=== PATIENT | male | born 1935 | race Caucasian/White ===

== ENCOUNTER 2016-06-09 09:07 | Inpatient (IN) | payer OTHER, BC ==
--- NOTE | ~2016-06-09 | DS ---
Discharge Summary [facility] [address] [place]. [address] NAME: JANNETH COTTER : 37 STATUS : DIS IN PAT#: [id number] AGE: 81 ADM/REG DATE : 06/09/16 MR#: [id number] REPORT SERV DATE: 06/11/16 DICTATED BY: MARYLIN OVALLE DATE: 06/10/16 REPORT STATUS : Draft TRANSCRIBED BY: MODL DATE: 06/10/16 ADMISSION DATE: 06/09/2016 DISCHARGE DATE: 06/10/2016 DISCHARGE DIAGNOSES: 1. Right foot cellulitis. 2. Myelodysplastic syndrome. 3. Gout status post tophi removal. 4. Chronic kidney disease. 5. History of mitral regurgitation. HISTORY OF PRESENT ILLNESS: This is an 81-year-old male patient, who does have multiple medical problems including MDS, had a recent tophi removal with panama hat blocker. Then developed redness and pain, and he had to come back to the hospital. Please see dictated H and P. HOSPITAL COURSE: He was admitted to hospital with cellulitis, had a CT of the foot. He states it did not show any evidence of a bone infection. It showed a cellulitis. In the emergency room, the patient was cultured; however, the culture did not grow anything. He is improving significantly with the vancomycin within 24 hours. The patient is requesting and insisting to go to home and getting the oral therapy due to the home situation with mentally impaired being alone. Also, we are consulting Abimbola Springer, his panama hat blocker, to take a look at his feet for wound care and also suture removal, and then we arranged to Zyvox therapy for six more days of the treatment. Concern for the staph infection since the procedure was done at the outpatient office. Also he had a significant improvement with vancomycin. We arranged Zyvox treatment and the patient is safely discharged home, and need to follow up with other physicians. The Zyvox was chosen due to his renal impair in order to cover Staph aureus. EKL/MODL Marylin Ovalle M.D. / [id number] CC: Nathen Frausto M.D.
--- NOTE | ~2016-06-09 | HP ---
History And Physical [address] [address] NAME: JANNETH COTTER : 37 STATUS : ADM IN [facility]#: [id number] AGE: 81 ADM/REG DATE : 06/09/16 MR#: [id number] REPORT SERV DATE: 06/09/16 DICTATED BY: JULIO BELL DATE: 06/09/16 REPORT STATUS : Draft TRANSCRIBED BY: MODErika DATE: 06/09/16 DATE OF ADMISSION: 06/09/2016 CHIEF COMPLAINT: Increased pain, induration, and redness of the right foot, status post procedure. HISTORY OF PRESENT ILLNESS: This is an 81-year-old male with a past medical history of myelodysplastic syndrome, being followed by Dr. Lopez, also a history of tophaceous gout, presented with a complaint of increased pain, induration, and erythema of the right foot for the past two days after having a procedure by Dr. Abimbola Springer, approximately six days ago. Apparently, according to the patient, he has a history of gout, from what he described as tophi and had a drainage of tophaceous site, approximately six days ago in the office by Dr. Springer. He was not given antibiotic, but was prescribed hydrocodone postprocedure. The patient denies any subjective fever, chills, but began to have some increased redness with some streaking up the foot, status post procedure. Also, the patient states that he has not visualized the toe, but kept the dressing on as instructed; however, dressing was removed today by the ER physician, Dr. Payne with finding of whitish drainage and wound culture was sent to the micro lab today by ER physician, and the hospitalist was called to admit the patient to the hospital. Also, a dose of Ancef was ordered in the ER. He also had an x-ray of the foot, which is not showing any signs of osteomyelitis per x-ray. The patient denies no chest pain, does have chronic dyspnea on exertion, but no shortness of breath at rest. No cough. No nausea or vomiting. The patient's primary care is Dr. Celis, payroll consultant Dr. Lopez, probate paralegal for history of mitral valve prolapse, status post surgery in 07/2014, nephrologists is Dr. Greenberg. REVIEW OF SYSTEMS: No subjective fever or chills. No nausea or vomiting. No diarrhea. No complaints of constipation. Positive induration and erythema of the right foot. 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 He denies any history of coronary artery disease or CHF, CKD and hypertension. History of mitral valve prolapse, status post surgery, being followed by Dr. Galvan. PAST SURGICAL HISTORY: As mentioned above. Mitral valve prolapse surgery in 07/2014, had a fracture of the arm as a child per chart with surgery, left inguinal hernia repair per chart, DAYANARA per chart, lithotripsy per chart, cystoscopy per chart, cardiac cath for mitral valve prolapse. FAMILY HISTORY: Colon cancer. Mother, hypertension. SOCIAL HISTORY: Quit tobacco abuse thirty or forty years ago. Drinks three to four beers a day. History And Physical [address] [address] NAME: JANNETH COTTER KIM : 37 STATUS : ADM IN [facility]#: [id number] AGE: 81 ADM/REG DATE : 06/09/16 MR#: [id number] REPORT SERV DATE: 06/09/16 DICTATED BY: JULIO BELL DATE: 06/09/16 REPORT STATUS : Draft TRANSCRIBED BY: LASHELL DATE: 06/09/16 ALLERGIES: TO NSAIDS DUE TO CKD. HOME MEDICATIONS: Allopurinol 150 mg p.o. daily, aspirin 81 mg p.o. daily, cholecalciferol 1000 units p.o. every 48 hours, colchicine 0.6 mg p.o. b.i.d., cyclosporine ophthalmic drops 0.05% q.a.m. in both eyes, Benadryl 50 mg p.o. at bedtime, doxazosin 2 mg p.o. q.a.m., furosemide 20 mg p.o. q.a.m., levothyroxine 50 mcg p.o. q.a.m., multivitamin with minerals, Zocor 20 mg p.o. daily, Refresh four times a day p.r.n., and triamcinolone 0.1% topical cream p.r.n to both legs. PHYSICAL EXAMINATION: VITAL SIGNS: Temp of 97.5, blood pressure 142/59 initially, currently at 122/63, pulse of 99, respiration rate of 18, saturating 98% on room air. GENERAL: The patient is alert and oriented. Well-nourished, well-groomed. HEENT: Pupils are equal, round, and reactive to light. Extraocular muscles are intact. Moist mucous membranes. CARDIOVASCULAR: S1, S2 with a 2/6 systolic murmur. No rubs. No gallops. No JVD. RESPIRATORY: Clear to auscultation bilaterally. No wheezes or crackles. No signs of tachypnea. ABDOMEN: Positive bowel sounds. Soft, nontender. No rebound. No fluid wave. No distention. EXTREMITIES: Weak dorsalis pedis pulse, but palpable positive posterior tibial pulse. The patient with sutures of the right middle toe with erythema, some induration, and drainage. SKIN: As mentioned above with some erythema up to the dorsal area of the right foot. NEUROLOGIC: Cranial nerves II through XII grossly intact. Moves all four extremities. No neuro focal deficits. IMAGING: EKG with first degree AV block. No ST elevation. LABORATORY DATA: Sodium 143, potassium 3.8, chloride of 108, bicarb of 25, BUN of 27, creatinine of 2.26 with a baseline creatinine of around 1.7 to 2.0 with a glucose of 93, calcium of 9.3, total bilirubin of 2.3 which is chronic. Alkaline phosphatase of 125, ALT of 35, AST of 24. White count of 2.9, hemoglobin of 10.2 with a platelet count of 53, MCV of 102.8. RDW 15.6. INR currently pending. UA not performed. ASSESSMENT AND PLAN: 1. Right toe and foot cellulitis, postop. 2. First degree AV block. 3. Chronic tophaceous gout. 4. Chronic myelodysplastic syndrome. 5. History of cerebrovascular accident. 6. Hypothyroidism. 7. Chronic cardiac murmur. 8. History of hypertension. History And Physical [address] [place]. [address] NAME: JANNETH COTTER : 37 STATUS : ADM IN [facility]#: [id number] AGE: 81 ADM/REG DATE : 06/09/16 MR#: [id number] REPORT SERV DATE: 06/09/16 DICTATED BY: JULIO BELL DATE: 06/09/16 REPORT STATUS : Draft TRANSCRIBED BY: LASHELL DATE: 06/09/16 We will continue with IV antibiotics. We will consult pharmacy for dosing of IV vancomycin. We will follow up with pending blood cultures and wound culture. Also, we will consult Dr. Abimbola Springer, podiatrists, and also send for medical records from Dr. Springer, Dr. Celis, Dr. Galvan, and send for old EKG, also will check a CT of the foot to rule out any underlying osteomyelitis. The patient will be admitted to the hospital. We will monitor closely. RICHA/LASHELL Julio Bell M.D. / [id number] CC: Nathen Betancourt M.D. Lisa Wamack, D.P.Faith Galvan M.D., Ph.D, F.A.C.C.
[~2016-06-09 09:07] MED LIST: CARDU4 PO; CARDURA8 MG PO; HALF81 PO; LO-DOSE ASPIRIN81 M1 PO; MUCOMYST; PRIN20 PO; ZOCOR40 PO
[2016-06-09] MEDS ORDERED: ZOCOR20 PO (09:44)
[2016-06-09] MEDS ORDERED: CARDU2 PO (09:44)
[2016-06-09] MEDS ORDERED: L20 PO (09:45)
[2016-06-09] MEDS ORDERED: VITAMIN D31000 UNIT PO (09:45)
[2016-06-09] MEDS ORDERED: ASAB PO (09:45)
[2016-06-09] MEDS ORDERED: Z100 PO (09:46)
[2016-06-09] MEDS ORDERED: SYN.05 PO (09:47)
[2016-06-09] MEDS ORDERED: COLCRYS0.6 MG PO (09:47)
[2016-06-09] MEDS ORDERED: BEN25 PO (09:48)
[2016-06-09] MEDS ORDERED: MULTIVIT/MIN PO (09:48)
[2016-06-09] MEDS ORDERED: RESTASIS OPH (09:49)
[2016-06-09] MEDS ORDERED: REFRES1 OPH (09:50)
[2016-06-09] MEDS ORDERED: TRIAMCINOLONE C80 GM TOP (09:51)
[2016-06-09 10:38] LABS: BASOPHILS 0.3 %; BASOPHILS ABSOLUTE 0.01 10/3/uL (0.0-0.16); EOSINOPHILS 2.1 %; EOSINOPHILS ABSOLUTE 0.06 10/3/uL (0.0-0.53); ER CBC TAT 0 Hrs 08 Mins; HEMATOCRIT 29.8 % (40.0-51.0); HEMOGLOBIN 10.2 g/dL (13.6-17.8); IMMATURE GRANULOCYTES 0.3 %; IMMATURE GRANULOCYTES ABSOLUTE 0.01 10/3/uL (0.0-0.11); LYMPHOCYTES 16.8 %; LYMPHOCYTES ABSOLUTE 0.49 10/3/uL (0.67-4.30); MEAN CORPUS HGB CONC 34.2 g/dL (32.0-36.0); MEAN CORPUSCULAR HEMOGLOB 35.2 pg (26.0-34.0); MEAN CORPUSCULAR VOLUME 102.8 fL (80-100); MEAN PLATELET VOLUME 8.7 fL (9.2-13.0); MONOCYTES 4.8 %; MONOCYTES ABSOLUTE 0.14 10/3/uL (0.21-1.20); NEUTROPHILS 75.7 %; PLATELET COUNT 53 10/3/uL (150-400); RBC DISTRIBUTION WIDTH 15.6 % (12.0-16.0); WHITE BLOOD CELLS 2.9 10/3/uL (4.5-10.5)
[2016-06-09 10:39] LABS: MANUAL DIFF NO %
[2016-06-09 10:58] LABS: MACROCYTES 1+ (5-10/OIF) (0-5/OIF); PLATELET ESTIMATE DEC (ADEQUATE)
[2016-06-09 11:03] LABS: A/G RATIO 1.4 (0.7-1.9); ALBUMIN 3.9 G/DL (3.5-5.0); ALKALINE PHOSPHATASE 125 U/L (45-117); BUN (BLOOD UREA NITROGEN) 27 MG/DL (6-23); CALCIUM, SERUM 9.3 MG/DL (8.5-10.4); CHLORIDE, SERUM 108 MMOL/L (96-112); CO2 (CARBON DIOXIDE) 25 MMOL/L (24-34); CREATININE 2.26 MG/DL (0.70-1.30); GFR AFRICAN AMERICAN 31 ML/MIN (>=60); GFR NON AFRICAN AMERICAN 26 ML/MIN (>=60); GLOBULIN 2.7 G/DL (2.5-4.1); GLUCOSE, SERUM 93 MG/DL (60-99); POTASSIUM, SERUM 3.8 MMOL/L (3.5-5.3); SGOT(AST) 24 U/L (5-40); SGPT(ALT) 35 U/L (5-65); SODIUM, SERUM 143 MMOL/L (135-148); TOTAL BILIRUBIN 2.3 MG/DL (0-1.2); TOTAL PROTEIN 6.6 G/DL (6.0-8.5)
[2016-06-10 06:15] LABS: HEMATOCRIT 27.6 % (40.0-51.0); HEMOGLOBIN 9.4 g/dL (13.6-17.8); MEAN CORPUS HGB CONC 34.1 g/dL (32.0-36.0); MEAN CORPUSCULAR HEMOGLOB 35.2 pg (26.0-34.0); MEAN CORPUSCULAR VOLUME 103.4 fL (80-100); MEAN PLATELET VOLUME 9.9 fL (9.2-13.0); PLATELET COUNT 54 10/3/uL (150-400); RBC DISTRIBUTION WIDTH 15.7 % (12.0-16.0); RED CELL COUNT 2.67 10/6/uL (4.7-6.1); WHITE BLOOD CELLS 1.8 10/3/uL (4.5-10.5)
[2016-06-10 06:16] LABS: MANUAL DIFF YES %
[2016-06-10 06:17] LABS: INTERNATIONAL NORMAL RATI 1.2 UNITS (-); PROTIME (NOT ORD) 14.8 SEC (12.0-14.5)
[2016-06-10 06:25] LABS: BUN (BLOOD UREA NITROGEN) 26 MG/DL (6-23); CALCIUM, SERUM 8.4 MG/DL (8.5-10.4); CHLORIDE, SERUM 113 MMOL/L (96-112); CHOL/HDL RATIO(NOT ORDER) 3.4 (0-5); CHOLESTEROL 95 MG/DL (< 200); CO2 (CARBON DIOXIDE) 23 MMOL/L (24-34); GFR AFRICAN AMERICAN 35 ML/MIN (>=60); GFR NON AFRICAN AMERICAN 31 ML/MIN (>=60); GLUCOSE, SERUM 96 MG/DL (60-99); HDL CHOLESTEROL 28 MG/DL (> 39); LDL CHOLESTEROL 44 MG/DL (< 130); NON-HDL CHOLESTEROL 67 MG/DL (< 160); POTASSIUM, SERUM 3.6 MMOL/L (3.5-5.3); SODIUM, SERUM 144 MMOL/L (135-148); TRIGLYCERIDE 118 MG/DL (< 150)
[2016-06-10 07:24] LABS: BAND NEUTROPHILS 8 %; LYMPHOCYTES 22 %; MONOCYTES 6 %; MONOCYTES ABSOLUTE (CALC) 0.11 10/3/uL (0.21-1.20); PLATELET ESTIMATE DEC (ADEQUATE); SEGMENTED NEUTROPHIL (0) 64 %; TOTAL NUCLEATED CELLS 100
[2016-06-10 07:25] LABS: MACROCYTES 1+ (5-10/OIF) (0-5/OIF)
[2016-06-10 12:11] LABS: HEPATITIS B SURFACE ANTIGEN NON-REACTIVE (NON-REACT)
[2016-06-10 12:12] LABS: HEPATITIS B CORE AB IGM NON-REACTIVE (NON-REAC); HEPATITIS C ANTIBODY NON-REACTIVE (NON-REACT)
[2016-06-10 12:14] LABS: HEP A ANTIBODY IGM NON-REACTIVE (NON-REACT)
[2016-06-10] MEDS ORDERED: ZYVOXPO PO (18:55)
[2016-09-05] MEDS ORDERED: RESTASIS OPH (19:50)
[2016-09-05] MEDS ORDERED: L20 PO (19:51)
[2016-09-05] MEDS ORDERED: TRIAMCINOLONE O80 GM TOP (19:51)
[2016-09-05] MEDS ORDERED: SYN.05 PO (19:52)
[2016-09-05] MEDS ORDERED: ZOCOR20 PO (19:52)
[2016-09-05] MEDS ORDERED: Z300 PO (19:52)
[2016-09-05] MEDS ORDERED: CARDU2 PO (19:52)
[2016-09-05] MEDS ORDERED: ASAB PO (19:53)
[2016-09-05] MEDS ORDERED: MULTIVIT/MIN PO (19:53)
[2016-09-05] MEDS ORDERED: VITAMIN D400 UNI1 PO (19:53)
[2016-09-05] MEDS ORDERED: BEN25 PO ×2 (19:53)
[2016-09-05] MEDS ORDERED: BIST PO (19:54)
[2016-09-05] MEDS ORDERED: TYLENOL OTC PO (19:55)
== END 2016-06-10 21:08 | DRG 603 ==
LOC: ER 09:07 → ER/OF 13:50 → 7NO 14:44
PROVIDERS: Emergency Medicine; Internal Medicine
DX: L03.115 Cellulitis of right lower limb (principal); N18.3 Chronic kidney disease, stage 3 (moderate); I12.9 Hypertensive chronic kidney disease with stage 1 through stage 4 chronic kidney disease, or unspecified chronic kidney disease; D46.9 Myelodysplastic syndrome, unspecified; E03.9 Hypothyroidism, unspecified; I44.0 Atrioventricular block, first degree; M1A.9XX1 Chronic gout, unspecified, with tophus (tophi); Z86.73 Personal history of transient ischemic attack (TIA), and cerebral infarction without residual deficits
CPT/HCPCS: 73660-RT; 73700-50; 80048; 80053; 80061; 80074; 83036; 85025; 85610; 87040; 87070; 87077; 87186; 87205; 93971; 96374; 99285; A9270-GY; J0690; J3370